=== PATIENT | male | born 2000 | race Two or more races ===

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

== ENCOUNTER 2018-09-04 04:50 | Emergency (ER) | payer SELFPAY ==
[~2018-09-04] VITALS: Ht 167.6 cm; Wt 81.6 kg
[~2018-09-04 04:50] MED LIST: IBUP-1007 PO
--- NOTE | 2018-09-04 05:27 | PHYS DOC ---
Past Medical History Past Medical History: No Pertinent History (KRISTA MORRIS DO) Past Surgical History: No Surgical History (KRISTA MORRIS DO) Alcohol Use: None Drug Use: None (KRISTA MORRIS DO) Adult General Chief Complaint Chief Complaint: ABDOMINAL PAIN HPI HPI 18-year-old otherwise healthy male presents with 1-2 day history of right upper quadrant abdominal pain. He stated initially it was waxing and waning last night the pain kept him up all night. He states eating makes it worse. He denies any melena or hematemesis. He states he's never had this kind of pain before. He denies any fever chills or sweats. He has not had a cough. He's had no dysuria or gross hematuria. He states the pain does radiate to his back.[] (KRISTA MORRIS DO) Review of Systems Review of Systems Constitutional: Denies fever or chills [] Eyes: Denies change in visual acuity, redness, or eye pain [] HENT: Denies nasal congestion or sore throat [] Respiratory: Denies cough or shortness of breath [] Cardiovascular: No additional information not addressed in HPI [] GI: Per history of present illness[] : Denies dysuria or hematuria [] Musculoskeletal: Denies back pain or joint pain [] Integument: Denies rash or skin lesions [] Neurologic: Denies headache, focal weakness or sensory changes [] Endocrine: Denies polyuria or polydipsia [] All other systems were reviewed and found to be within normal limits, except as documented in this note. (KRISTA MORRIS DO) Current Medications Current Medications Current Medications Medications (Trade) Dose Ordered Sig/Cristina Start Time Stop Time Status Last Admin Dose Admin Fentanyl Citrate (Fentanyl 2ml Vial) 50 mcg 1X ONCE 09/04/18 05:30 09/04/18 05:31 DC 09/04/18 05:56 50 MCG Ondansetron HCl (Zofran) 4 mg 1X ONCE 09/04/18 05:30 09/04/18 05:31 DC 09/04/18 05:55 4 MG Sodium Chloride 1,000 ml @ 1,000 mls/hr 1X ONCE 09/04/18 05:30 09/04/18 06:29 DC 09/04/18 05:54 1,000 MLS/HR (ANAI CASPER MD) Allergies Allergies Allergies Coded Allergies Type Severity Reaction Last Updated Verified No Known Drug Allergies 11/04/16 No (ANAI CASPER MD) Physical Exam Physical Exam Constitutional: Well developed, well nourished, mild distress, non-toxic appearance. [] HENT: Normocephalic, atraumatic, bilateral external ears normal, oropharynx moist, no oral exudates, nose normal. [] Eyes: PERRLA, EOMI, conjunctiva normal, no discharge. [] Neck: Normal range of motion, no tenderness, supple, no stridor. [] Cardiovascular:Heart rate regular rhythm, no murmur [] Lungs & Thorax: Bilateral breath sounds clear to auscultation [] Abdomen: Right upper quadrant[] Skin: Warm, dry, no erythema, no rash. [] Back: No tenderness, no CVA tenderness. [] Extremities: No tenderness, no cyanosis, no clubbing, ROM intact, no edema. [] Neurologic: Alert and oriented X 3, normal motor function, normal sensory function, no focal deficits noted. [] Psychologic: Affect normal, judgement normal, mood normal. [] (KRISTA MORRIS DO) Current Patient Data Vital Signs Vital Signs Date Time Temp Pulse Resp B/P (MAP) Pulse Ox O2 Delivery O2 Flow Rate FiO2 09/04/18 06:26 14 98 Room Air 09/04/18 06:16 76 128/65 (86) 09/04/18 04:52 98.2 98.2 (ANAI CASPER MD) Lab Values Laboratory Tests Test 09/04/18 05:41 09/04/18 05:49 Urine Color Yellow Urine Clarity Clear Urine pH 6.5 Urine Specific [place] 1.025 Urine Protein Negative mg/dL (NEG-TRACE) Urine Glucose (UA) Negative mg/dL (NEG) Urine Ketones (Stick) 15 mg/dL (NEG) Urine Blood Negative (NEG) Urine Nitrite Negative (NEG) Urine Bilirubin Negative (NEG) Urine Urobilinogen Dipstick 1.0 mg/dL (0.2 mg/dL) Urine Leukocyte Esterase Negative (NEG) Urine RBC Occ /HPF (0-2) Urine WBC 1-4 /HPF (0-4) Urine Bacteria 0 /HPF (0-FEW) Urine Mucus Marked /LPF White Blood Count 11.5 x10^3/uL (4.0-11.0) H Red Blood Count 5.40 x10^6/uL (4.30-5.70) Hemoglobin 15.0 g/dL (13.0-17.5) Hematocrit 44.5 % (39.0-53.0) Mean Corpuscular Volume 82 fL (79-100) Mean Corpuscular Hemoglobin 28 pg (25-35) Mean Corpuscular Hemoglobin Concent 34 g/dL (31-37) Red Cell Distribution Width 13.3 % (11.5-14.5) Platelet Count 259 x10^3/uL (140-400) Neutrophils (%) (Auto) 65 % (31-73) Lymphocytes (%) (Auto) 24 % (24-48) Monocytes (%) (Auto) 9 % (0-9) Eosinophils (%) (Auto) 2 % (0-3) Basophils (%) (Auto) 1 % (0-3) Neutrophils # (Auto) 7.5 x10^3uL (1.8-7.7) Lymphocytes # (Auto) 2.7 x10^3/uL (1.0-4.8) Monocytes # (Auto) 1.0 x10^3/uL (0.0-1.1) Eosinophils # (Auto) 0.2 x10^3/uL (0.0-0.7) Basophils # (Auto) 0.1 x10^3/uL (0.0-0.2) Sodium Level 140 mmol/L (136-145) Potassium Level 4.0 mmol/L (3.5-5.1) Chloride Level 102 mmol/L (98-107) Carbon Dioxide Level 27 mmol/L (21-32) Anion Gap 11 (6-14) Blood Urea Nitrogen 9 mg/dL (8-26) Creatinine 1.1 mg/dL (0.7-1.3) Estimated GFR (Cockcroft-Gault) 85.3 BUN/Creatinine Ratio 8 (6-20) Glucose Level 101 mg/dL (70-99) H Calcium Level 9.1 mg/dL (8.5-10.1) Total Bilirubin 0.6 mg/dL (0.2-1.0) Aspartate Amino Transferase (AST) 27 U/L (15-37) Alanine Aminotransferase (ALT) 48 U/L (16-63) Alkaline Phosphatase 122 U/L (46-116) H Total Protein 8.2 g/dL (6.4-8.2) Albumin 4.3 g/dL (3.4-5.0) Albumin/Globulin Ratio 1.1 (1.0-1.7) Lipase 145 U/L (73-393) Laboratory Tests 09/04/18 05:49 Laboratory Tests 09/04/18 05:49 (ANAI CASPER MD) EKG EKG [] (KRISTA MORRIS DO) Radiology/Procedures Radiology/Procedures [] (KRISTA MORRIS DO) Radiology/Procedures [facility] [address] [facility] [place] [address] IMAGING REPORT Signed PATIENT: TEJINDER BARDALES ACCOUNT: [id number] : 2000 LOCATION: ER AGE: 18 SEX: M EXAM STATUS: REG ER ORD. PHYSICIAN: KRISTA MORRIS DO REASON: ruq pain - r/o cholecystitis PROCEDURE: ABDOMEN LTD CLINICAL HISTORY: RUQ PAIN COMPARISON: None available. TECHNIQUE: Limited ultrasound examination of the right upper quadrant of the abdomen was performed FINDINGS: Liver: The liver measures 15.1 cm in length in the right mid clavicular line. Increased echogenicity of the liver relative to the right kidney consistent with hepatic steatosis.. There is no focal abnormality of the liver. Portal and hepatic venous flow is confirmed with normal waveforms. Gallbladder/Biliary: The gallbladder is normal in appearance without evidence for cholelithiasis. There is no wall thickening or pericholecystic fluid. There is no pain with direct transducer pressure over the gallbladder.The common bile duct measures 0.4 cm. Pancreas is obscured by overlying bowel gas. The right kidney measures 9.4 cm in bipolar length. There is no free fluid in the subhepatic space. IMPRESSION: 1. Hepatic steatosis. 2. No evidence for acute cholecystitis. 3. No definite gallstones are seen. Electronically signed by: Diallo Bradley MD (09/04/2018 6:41 AM) [facility] DICTATED and SIGNED BY: DIALLO BRADLEY MD DATE: 09/04/18 0641 (ANAI CASPER MD) Course & Med Decision Making Course & Med Decision Making Pertinent Labs and Imaging studies reviewed. (See chart for details) [ED course: Evaluation reveals 18-year-old male with right upper quadrant abdominal pain. I suspect he has biliary colic. We will have blood work drawn and a gallbladder ultrasound ordered. This testing will be deferred to the oncoming provider Dr. Casper to follow-up on.] (KRISTA MORRIS DO) Course & Med Decision Making Evaluation of patient in ER showed 18-year-old male patient with complaining of right upper quadrant pain without any nausea vomiting and diarrhea and other GI symptoms. Patient had unremarkable physical exam and labs and gallbladder ultrasound. Patient for definitive treatment in ER. Plan to discharge patient home to diagnose of dyspepsia. (ANAI CASPER MD) Dragon Disclaimer Dragon Disclaimer This electronic medical record was generated, in whole or in part, using a voice recognition dictation system. (KRISTA MORRIS DO) Departure Departure Impression: Primary Impression: Abdominal pain Additional Impression: Dyspepsia Disposition: HOME, SELF-CARE (at 0657) Condition: IMPROVED Referrals: NO PCP (PCP) Patient Instructions: Diet for Gastroesophageal Reflux Disease, Adult, Gastroesophageal Reflux Disease, Adult Additional Instructions: Drink plenty of liquids Follow-up with your primary care physician in 3-5 days Return to ER if not getting better Scripts Ranitidine Hcl (ZANTAC) 150 Mg Tablet 1 TAB PO BID for dyspepsia, #14 TAB 0 Refills Prov: ANAI CASPER MD 09/04/18 Problem Qualifiers Primary Impression: Abdominal pain Abdominal location: right upper quadrant Qualified Codes: R10.11 - Right upper quadrant pain KRISTA MORRIS DO Sep 04, 2018 05:27 ANAI CASPER MD Sep 04, 2018 06:59
[2018-09-04] MEDS ORDERED: fentaNYL PF VIAL 100 MCG/2 ML VIAL IV ONE (05:30)
[2018-09-04] MEDS ORDERED: IV NORMAL SALINE 1000ML BAG 1,000 ML IV ONE (05:30)
[2018-09-04] MEDS ORDERED: ONDANSETRON PF 4 MG/2 ML VIAL. IV ONE (05:30)
[2018-09-04 05:58] LABS: BILIRUBIN,URINE NEGATIVE (NEG); CLARITY,URINE CLEAR; COLOR,URINE YELLOW; NITRITE,URINE NEGATIVE (NEG); PH,URINE 6.5; PROTEIN,URINE NEGATIVE (NEG-TRACE)
[2018-09-04 05:59] LABS: BASO # 0.1 x10^3/uL (0.0-0.2); BASO % 1 % (0-3); EOS # 0.2 x10^3/uL (0.0-0.7); EOS % 2 % (0-3); HEMATOCRIT 44.5 % (39.0-53.0); LYMPH # 2.7 x10^3/uL (1.0-4.8); LYMPH % 24 % (24-48); MEAN CORPUSCULAR HEMOGLOBIN 28 pg (25-35); MEAN CORPUSCULAR HGB CONC 34 g/dL (31-37); MEAN CORPUSCULAR VOLUME 82 fL (79-100); MONO % 9 % (0-9); NEUT # 7.5 x10^3uL (1.8-7.7); NEUT % 65 % (31-73); PLATELET COUNT 259 x10^3/uL (140-400); RED CELL DISTRIBUTION WIDTH 13.3 % (11.5-14.5); WHITE BLOOD COUNT 11.5 x10^3/uL (4.0-11.0)
[2018-09-04 06:07] LABS: CALCIUM 9.1 mg/dL (8.5-10.1); CREATININE 1.1 mg/dL (0.7-1.3); GFR 85.3
[2018-09-04 06:09] LABS: BACTERIA,URINE 0 /HPF (0-FEW)
[2018-09-04 06:10] LABS: RBC,URINE OCC /HPF (0-2)
[2018-09-04 06:13] LABS: ALBUMIN 4.3 g/dL (3.4-5.0); ALBUMIN/GLOBULIN RATIO 1.1 (1.0-1.7); TOTAL BILIRUBIN 0.6 mg/dL (0.2-1.0); TOTAL PROTEIN 8.2 g/dL (6.4-8.2)
--- NOTE | 2018-09-04 06:44 | RAD ---
CLINICAL HISTORY: RUQ PAIN COMPARISON: None available. TECHNIQUE: Limited ultrasound examination of the right upper quadrant of the abdomen was performed FINDINGS: Liver: The liver measures 15.1 cm in length in the right mid clavicular line. Increased echogenicity of the liver relative to the right kidney consistent with hepatic steatosis.. There is no focal abnormality of the liver. Portal and hepatic venous flow is confirmed with normal waveforms. Gallbladder/Biliary: The gallbladder is normal in appearance without evidence for cholelithiasis. There is no wall thickening or pericholecystic fluid. There is no pain with direct transducer pressure over the gallbladder.The common bile duct measures 0.4 cm. Pancreas is obscured by overlying bowel gas. The right kidney measures 9.4 cm in bipolar length. There is no free fluid in the subhepatic space. IMPRESSION: 1. Hepatic steatosis. 2. No evidence for acute cholecystitis. 3. No definite gallstones are seen. Electronically signed by: Diallo Rosales MD (09/04/2018 6:41 AM) [facility]
[2018-09-04 06:46] VITALS: BP 134/60
[2018-09-04] MEDS ORDERED: RANI-376 PO (06:59)
== END 2018-09-04 07:10 | disposition home or self-care (01) ==
LOC: ER 04:50
DX: R10.11 Right upper quadrant pain (principal); R10.13 Epigastric pain; K76.0 Fatty (change of) liver, not elsewhere classified
CPT/HCPCS: 36415; 76705; 80053; 81001; 83690; 85025; 96374; 96375; 99284; J2405; J3010; J7030